=== PATIENT | male | born 1990 | race Caucasian/White ===

== ENCOUNTER 2018-10-05 17:41 | Emergency (ER) | payer SELFPAY ==
[~2018-10-05] VITALS: Ht 172.7 cm; Wt 81.0 kg
[2018-10-05] MEDS ORDERED: HYDROCODONE/ACETAMINOPHEN 5/325MG TABLET PO ONE (19:15)
[2018-10-05] MEDS ORDERED: ONDANSETRON 4MG ODT PO ONE (19:15)
[2018-10-05 20:35] VITALS: BP 128/81
== END 2018-10-05 21:16 | disposition home or self-care (01) ==
LOC: ER 18:00
DX: S20.212A Contusion of left front wall of thorax, initial encounter (principal); M54.6 Pain in thoracic spine; V43.02XA Car driver injured in collision with other type car in nontraffic accident, initial encounter; Y93.89 Activity, other specified; Y92.89 Other specified places as the place of occurrence of the external cause; Y99.8 Other external cause status
CPT/HCPCS: 71101; 72070; 99283; Q0162